=== PATIENT | male | born 1955 | race Caucasian/White ===

== ENCOUNTER → 2021-08-19 | Outpatient (CLI) | payer OTHER, MEDICARE, SELFPAY | END | disposition home or self-care (01) | PROVIDERS: PCP Specialist; Referring Provider Psychiatry & Neurology Neurology; Visit Provider Psychiatry & Neurology Neurology | DX: I10 Essential (primary) hypertension (principal) ==

== ENCOUNTER 2024-09-29 19:46 | Emergency (ER) | payer MEDICARE, OTHER, SELFPAY ==
[2024-09-29] VITALS (10 sets, daily range): BP systolic 75–140; BP diastolic 7–97; PULSE 82–117; RESP 15–127; TEMP 36.7–36.8; O2SAT 96–99; BMI 30.9
--- NOTE | 2024-09-29 20:16 | XR_ITS ---
Examination: CT abdomen and pelvis without contrast. Coronal 3-D reconstructions. Sagittal 2-D reconstructions. Date and time of exam:September 29, 20242026 hrs. Comparison September 01, 2021 Indications: Onset right-sided flank pain radiating to the back beginning last night CTDI: vol (mGy): 11.4 DLP: (mGycm): 800 Technique: Axial images of the abdomen have been obtained, 3 mm slice thickness Intravenous contrast material has not been administered. Low dose protocols were performed. One or more of the following dose reduction techniques were used; automated exposure control, adjustment of the mA and/or KV according to patient size, use of iterative reconstruction technique. Findings: No focal liver or splenic lesions No gallstones No pancreatic or adrenal mass Prominent right perinephric stranding Infrarenal abdominal aortic aneurysm transverse dimension 6.3 cm with rupture of the right lateral wall of this aneurysm, axial images 125 through 146 with free blood in the abdomen and retroperitoneal adjacent to the psoas No bowel obstruction Urinary bladder intact Impression: Ruptured infrarenal abdominal aortic aneurysm with extensive free blood in the abdomen
--- NOTE | 2024-09-29 20:17 | EKG_ITS ---
[facility] Test Date: 2024-09-29 Pat Name: ODALSY SOUSA Department: Room: - Gender: Male Wholesaler: : 1955 Requested By: Pranav Carrasco Order Number: [id number] Reading MD: Pranav Carrasco Measurements Intervals [place] Rate: 124 P: 57 [place]: 119 QRS: 61 QRSD: 81 T: 48 QT: 306 QTc: 440 Interpretive Statements SINUS TACHYCARDIA WITH SHORT [place] INTERVAL MINIMAL ST DEPRESSION [0.025+ mV ST DEPRESSION] ABNORMAL RHYTHM ECG Compared to ECG 12/31/2020 09:25:35 Short [place] interval now present ST (T wave) deviation now present Sinus rhythm no longer present /store/S0/[id number]/ecg/[id number].pdf
--- NOTE | 2024-09-29 20:17 | PD.EDADULT ---
ED General RME/HPI General Chief complaint: Abdominal Pain Stated complaint: R FLANK PAIN Time Seen by Provider: 09/29/24 20:13 Arrival date/time: 09/29/24 19:46 CC: Right flank pain right low back pain HPI insidious onset last night, progressive increase in severity, denies nausea vomiting painful urination bloody urination, shortness of breath difficulty breathing left-sided flank pain. EMS reports stable vital signs and route pain ranked at an 8 on a 10 scale. No OTC medicines taken. Patient denies any prescribed medications no allergies. Patient is a poor historian but is awake and alert. Related Data Home Medications ?Medication ?Instructions ?Recorded ?Confirmed No Known Home Medications 12/31/20 12/31/20 Allergies Allergy/AdvReac Type Severity Reaction Status Date / Time No Known Allergies Allergy Verified 01/03/21 11:22 Review of Systems Review of Systems Narrative Review of Systems: GEN: No fever, no chills, no weight loss EYES: No discharge, no visual changes, no pain HEENT: No ear pain, no congestion, no sore throat PULM: No shortness of breath, no cough, no congestion CV: No chest pain, no dyspnea on exertion, no palpitations GI: No nausea, no vomiting, no diarrhea, no pain, no constipation : No frequency, no urgency, no dysuria MUSC/SKEL: No joint pain, + back pain SKIN: No rash PSYCH: No hallucinations, no depression HEME/LYMPH: No easy bleeding or bruising tendencies NEURO: No weakness, no headache Past Medical History Past Medical History NEUROLOGIC: Negative Neurological Disorders or Seizures CARDIAC: Negative Cardiac Disorders, Congestive Heart Failure, Edema or Cellulitis (LEFT WRIST DOG SCRATCHES) RESPIRATORY: Negative Chronic Obstructive Pulmonary Disease (COPD), Tuberculosis, Pulmonary Embolism or Sleep Apnea GASTROINTESTINAL: Negative Gastrointestinal Disorders or Hepatitis GENITOURINARY: Negative Genitourinary Disorders or Renal Disease MUSCULOSKELETAL: Positive Musculoskeletal Disorders ENDOCRINE: Negative Endocrine Disorders, Diabetes Mellitus Type 1 or Diabetes Mellitus Type 2 HEMATOLOGIC: Negative Blood Disorders OTHER HISTORY: Positive Chicken Pox; Negative Hospitalization, Autoimmune Disease, Shingles, Falls, Blood Transfusions, Blood Transfusion Reaction, Anesthesia Reactions, Chemotherapy, Radiation Therapy, MRSA, Measles, Mumps or Cancer Family History FAMILY HISTORY: Positive Family Cancer (FATHER (THROAT)); Negative Family Psychiatric Problems, Family Respiratory Disorders, Family Cardiac Disorders, Family Gastrointestinal Problems, Family Surgery or Family Anesthesia Reaction Surgical History SURGICAL: Negative Pacemaker Social History SMOKING STATUS: Former smoker ED Exam Narrative Physical exam: [General: Obese mild discomfort but not in any acute distress Head normocephalic HEENT: Within acceptable limits Neck is supple nontender Chest equal chest rise nontender to palpation Respiratory: Clear to auscultation no wheezes crackles or rubs CV: Rate rhythm is regular no murmurs rubs or clicks Abdomen is distended secondary to body habitus soft nontender no masses positive bowel sounds all 4 quadrants Back: No CVA tenderness bilaterally, no spinous process tenderness from cervical spine thoracic and lumbar spine Skin: Intact no petechiae rash induration ulceration or crepitus Extremities: Moving all extremity against resistance cap refill less than 2 seconds neurosensory intact Neuro: Awake alert oriented x3 Glascow coma 15 no focal deficits] Course Course Course Narrative: CT shows a ruptured infrarenal aortic aneurysm with extensive free blood in the abdomen Patient started on 2 L of normal saline, spoke with Florentin, donor services coordinator and then with Dr. Dolan at [facility] who agrees to accept the patient encourage patient to be stabilized and flown by air. TXA does not have any advantages is not recommended for administration. Will transfuse the patient with 2 units of O- blood. During the last 20 minutes, patient was given 3 units of O- blood through rapid infuser, blood pressures improved to systolic of 120-130/60, heart rate decreased from 1 26-1 04. The patient remained awake alert oriented throughout the incident. Flight team's arrived at 2200, the patient continues to be awake alert. Quality Measures none Orders Category Date Time Status EKG (ED ONLY) *Do not use* NOW Care 09/29/24 20:17 Completed Insert IV NOW Care 09/29/24 20:54 Active Miscellaneous Nursing Order NOW Care 09/29/24 20:30 Active Transfuse,blood/blood products NOW Care 09/29/24 21:[address] abdomen pelvis wo con Stat Exams 09/29/24 20:16 Completed EKG (ED Only) Stat Exams 09/29/24 20:17 Draft B-Type Natriuretic Peptide Stat Lab 09/29/24 20:46 Completed CBC Stat Lab 09/29/24 20:46 Completed Comprehensive Metabolic Panel Stat Lab 09/29/24 20:46 Results Drug Screen,Urine Stat Lab 09/29/24 20:17 Ordered LDH (Lactate Dehydrogenase) Stat Lab 09/29/24 20:46 Results Magnesium Stat Lab 09/29/24 20:46 Results Partial Thromboplastin Time Stat Lab 09/29/24 20:46 Completed Prothrombin Time with INR Stat Lab 09/29/24 20:46 Completed Red Blood Cells Stat Lab 09/29/24 21:22 Ordered Troponin I Stat Lab 09/29/24 20:46 Results Type and Screen Stat Lab 09/29/24 21:15 Results Urinalysis Stat Lab 09/29/24 20:17 Ordered prbc [Red Blood Cells] Stat Lab 09/29/24 21:15 Results Sodium Chloride 0.9% 1000 ml [Ns] 1,000 ml Med 09/29/24 21:01 Discontinued IV 999 mls/hr Sodium Chloride 0.9% 1000 ml [Ns] 1,000 ml Med 09/29/24 21:04 Discontinued IV 999 mls/hr Vital Signs Vital signs: Vital Signs Temperature 98.2 F 09/29/24 19:50 Pulse Rate 82 09/29/24 19:50 Respiratory Rate 20 09/29/24 19:50 Blood Pressure 138/82 H 09/29/24 19:50 Pulse Oximetry (%) 99 09/29/24 19:50 Oxygen Delivery Method Room Air 09/29/24 19:50 [facility] Patient data External records reviewed:: [facility] previous records and EMS form Clinical information provided by:: patient and EMS Social determinants that could affect healthcare access:: none Patient has the following chronic illnesses:: None How is presenting disease/condition affected by chronic disease/condition?: uneffected by Evaluation data The following diagnostics were reviewed and interpreted by me:: lab results and radiology exam(s) Lab and/or radiology exams considered but not ordered:: EKG performed at 2036 shows a ventricular rate of 124 SD interval 119 QRS of 81 QTc of 380 this is sinus tachycardia. When compared to an old EKG of 2019 morphology and rate have changed. CBC shows a leukocytosis of 29,100 and H&H of 11, which is down 4 g from the last blood draw, no thrombocytopenia Coags show an INR of 1.1 CMP shows a sodium 134 potassium 3.9 chloride of 103 CO2 of 22.4 BUN of 21 creatinine 1.5 with a blood glucose of 227. Troponin at 0.027 No urine available at the time of transfer Interpretation Summary: Infrarenal aortic aneurysm 6.3 cm with rupture Medications Medications considered but not ordered:: None Medication administrations:: Medication Administration History Discontinued Medications Sodium Chloride (Ns) 1,000 mls @ 999 mls/hr IV .Q1H1M ONE Stop: 09/29/24 22:01 Last Infusion: 09/29/24 22:14 Dose: Infused Documented By: Infusion: 09/29/24 21:20 Dose: 999 mls/hr Documented By: Admin: 09/29/24 21:03 Dose: 999 mls/hr Documented By: FAHEEM Sodium Chloride (Ns) 1,000 mls @ 999 mls/hr IV .Q1H1M ONE Stop: 09/29/24 22:04 Last Infusion: 09/29/24 21:20 Dose: 0 mls/hr Documented By: Admin: 09/29/24 21:06 Dose: 999 mls/hr Documented By: FAHEEM None Consultations Consultation(s) initiated? (list below): Yes Consultation #1 (Physician, Specialty, Details): Dr Magdaleno enrique Time: 21:30 Diagnosis Differential Diagnosis ED Complaint MDM: Intrarenal aortic aneurysm with rupture, urolithiasis hydroureter ileus Most likely diagnosis given after review of the tests above:: Infrarenal aortic aneurysm with rupture Admission Indicated Admission indicated?: indicated Explain why admission is indicated or not indicated:: Transfer Admission Request Was there a request for admission?: No Disposition Plan Disposition Plan: Transfer Medical Decision Making Differential Diagnosis Differential Diagnosis: Intrarenal aortic aneurysm with rupture, urolithiasis hydroureter ileus Lab Data 09/29/24 20:46 09/29/24 20:46 Labs: Lab Results 09/29/24 09/29/24 Range/Units 20:46 21:15 WBC 29.1 H (3.8-10.6) Thou/mm3 RBC 4.12 L (4.50-5.90) Miln/mm3 Hgb 11.7 L (13.5-16.0) g/dL Hct 34.6 L (41.0-53.0) % MCV 84 (80-100) fL MCH 28.4 (25.0-35.0) pg MCHC 33.8 (31.0-37.0) g/dl RDW Std Deviation 42.1 (35.1-43.9) fL Plt Count 357 (140-440) Thou/mm3 Neut % (Auto) 86 H (37-80) % Lymph % (Auto) 5 L (10-50) % Wheeler % (Auto) 8 (0-12) % Eos % (Auto) 0 (0-10) % Baso % (Auto) 0 (0-2.5) % Neut # (Auto) 24.9 H (1.8-7.7) Thou/mm3 Lymph # (Auto) 1.6 (1.0-4.8) Thou/mm3 Wheeler # (Auto) 2.2 H (0.0-0.8) Thou/mm3 Eos # (Auto) 0.1 (0.0-0.5) Thou/mm3 Baso # (Auto) 0.1 (0.0-0.2) Thou/mm3 Immature Gran # (Auto) 0.31 H (0.00-0.00) Thou/mm3 Absolute Nucleated RBC 0.00 (0.00-0.00) Thou/mm3 Immature Gran % 1 H (0-0) % Nucleated RBC % 0 (0) /100 WBC PT 11.9 (9.0-12.2) Seconds INR 1.1 (0.9-1.3) APTT 30.0 (22.0-36.0) Seconds Sodium 134 L (136-145) mMol/L Potassium 3.9 (3.4-5.1) mMol/L Chloride 103 (98-107) mMol/L Carbon Dioxide 22.4 (20.0-31.0) mMol/L Anion Gap 9 (7-16) BUN 21 (9-23) mg/dL Creatinine 1.5 H (0.6-1.3) mg/dL Estim Creat Clear Calc 57.8 L (>60) mL/min eGFR 50 L (60 - ) See Note BUN/Creatinine Ratio 14 (12-20) Ratio Glucose 227 H (74-106) mg/dL Calculated Osmolality 278 (275-295) Calcium 9.0 (8.3-10.6) mg/dL Corrected Calcium 9.0 (8.5-10.1) mg/dL Magnesium 2.2 (1.6-2.6) mg/dL Total Bilirubin 0.9 (0.3-1.2) mg/dL AST 25 (0-34) U/L ALT 28 (10-49) U/L Alkaline Phosphatase 93 (46-116) U/L Troponin I 0.027 (0.0-0.045) ng/mL B-Natriuretic Peptide < 20 (0-100) pg/mL Total Protein 6.6 (5.7-8.2) gm/dL Albumin 4.0 (3.4-4.8) gm/dL Globulin 2.6 (2.3-3.5) gm/dL Albumin/Globulin Ratio 1.5 (1.2-2.2) Blood Type B Positive Antibody Screen NEGATIVE Crossmatch See Detail Blood Bank Wristband ID Yes Critical Care Time Critical Care Time Critical Care Time: Yes Total Critical Care Time (min.): 38 Attestation: Excluding procedures Discharge Plan [facility] Transferred to: [facility] Service Needed for Transfer: Vascular Surgery Patient condition on transfer: Stable Prescriptions/Referrals Prescriptions/Med Rec: No Action No Known Home Medications Referrals: No Primary/Family,Physician [Primary Care Provider] - In 1 week Problem List Clinical Impression: Aneurysm, aortic, ruptured Patient/Caregiver Discharge Instructions Print Language: Cymro Stand Alone Forms: Judith Award Info., Patient Portal Info Letter PA/PAPO Supervising Physician JOHN/PAPO Supervising Physician: Pranav Tyler ENP
[2024-09-29] MEDS: SODIUM CHLORIDE 0.9% 1000 ML 1,000 ML 999 ML IV ×2 (21:03→21:06)
[2024-09-29 21:06] LABS: Basophils # (Auto) 0.1 Thou/mm3 (0.0-0.2); Basophils % (Auto) 0 % (0-2.5); Eosinophils # (Auto) 0.1 Thou/mm3 (0.0-0.5); Eosinophils % (Auto) 0 % (0-10); Hematocrit 34.6 % (41.0-53.0); Hemoglobin 11.7 g/dL (13.5-16.0); Immature Granulocytes % (Auto) 1 % (0-0); Immature Granulocytes Auto 0.31 Thou/mm3 (0.00-0.00); Lymphocytes # (Auto) 1.6 Thou/mm3 (1.0-4.8); Lymphocytes % (Auto) 5 % (10-50); Mean Corpuscular HGB Conc 33.8 g/dl (31.0-37.0); Mean Corpuscular Hemoglobin 28.4 pg (25.0-35.0); Mean Corpuscular Volume 84 fL (80-100); Monocytes # (Auto) 2.2 Thou/mm3 (0.0-0.8); Monocytes % (Auto) 8 % (0-12); Neutrophils # (Auto) 24.9 Thou/mm3 (1.8-7.7); Neutrophils % (Auto) 86 % (37-80); Nucleated Red Blood Cell % 0 /100 WBC (0); Platelet Count 357 Thou/mm3 (140-440); RDW Standard Deviation 42.1 fL (35.1-43.9); Red Blood Count 4.12 Miln/mm3 (4.50-5.90)
[2024-09-29 21:10] LABS: White Blood Count 29.1 Thou/mm3 (3.8-10.6)
[2024-09-29 21:22] LABS: INR 1.1 (0.9-1.3); Prothrombin Time 11.9 Seconds (9.0-12.2)
[2024-09-29 21:23] LABS: B-Type Natriuretic Peptide < 20 pg/mL (0-100)
--- NOTE | 2024-09-29 21:23 | PC.NURSE ---
PT WAS ACCEPTED TO [facility] BY DR. MICHAELS. THIS IS A ER:ER TRANSFER AND NUMBER FOR REPORT IS [phone]. FABRICIO WAS THE REP I SPOKE TO FOR ACCEPTING INFORMATION.
--- NOTE | 2024-09-29 21:24 | PC.NURSE ---
I CONTACTED [facility] TO SEE ID THEY ARE ABLE TO TRANSPORT THIS PT FOR US AND WE ARE PENDING A CALL BACK AT THIS TIME. SARAI WAS THE REP I SPOKE WITH.
--- NOTE | 2024-09-29 21:27 | PC.NURSE ---
PT WAS ACCEPTED FOR TRANSPORT BY [facility] WITH A BEDSIDE ETA OF 20MIN.
--- NOTE | 2024-09-29 21:30 | PC.NURSE ---
Rapid blood infusing started
[2024-09-29 21:42] LABS: Alanine Aminotransferase 28 U/L (10-49); Albumin/Globulin Ratio 1.5 (1.2-2.2); Alkaline Phosphatase 93 U/L (46-116); Anion Gap 9 (7-16); Aspartate Amino Transferase 25 U/L (0-34); BUN/Creatinine Ratio 14 Ratio (12-20); Bilirubin,Total 0.9 mg/dL (0.3-1.2); Blood Urea Nitrogen 21 mg/dL (9-23); Carbon Dioxide 22.4 mMol/L (20.0-31.0); Chloride 103 mMol/L (98-107); Creatinine (Component) 1.5 mg/dL (0.6-1.3); Estimated Creatinine Clearance 57.8 mL/min (>60); Globulin 2.6 gm/dL (2.3-3.5); Glucose 227 mg/dL (74-106); Magnesium 2.2 mg/dL (1.6-2.6); Osmolality,Calculated 278 (275-295); Potassium 3.9 mMol/L (3.4-5.1); Sodium 134 mMol/L (136-145); Total Protein 6.6 gm/dL (5.7-8.2); Troponin I 0.027 ng/mL (0.0-0.045); eGFR 50 See Note
--- NOTE | 2024-09-29 22:02 | PC.NURSE ---
fight team here
--- NOTE | 2024-09-29 22:04 | PC.NURSE ---
GAVE REPORT TO LUZ ELENA PATELOVEN DRIER TENDER NURSE
--- NOTE | 2024-09-29 22:12 | PC.NURSE ---
Called [facility] and gave report to Tammie PATEL
[2024-09-29 23:00] LABS: LDH (Lactate Dehydrogenase) 157 U/L (120-246)
== END 2024-09-29 22:18 | disposition short-term general hospital (02) ==
PROVIDERS: Registered Nurse General Practice; Emergency Provider Emergency Medicine
DX: I71.33 Infrarenal abdominal aortic aneurysm, ruptured (principal); R00.0 Tachycardia, unspecified; Z75.1 Person awaiting admission to adequate facility elsewhere
CPT/HCPCS: 36415; 36430; 74176; 80048; 80053; 80307; 81001; 83605; 83615; 83735; 83880; 84484; 85025; 85610; 85730; 86850; 86900; 86901; 86920; 93005; 96360; 99291; J7030; P9016

== ENCOUNTER 2024-10-06 12:55 | Emergency (ER) | payer MEDICARE, OTHER, SELFPAY ==
[2024-10-06] VITALS (11 sets, daily range): BP systolic 127–179; BP diastolic 71–99; PULSE 90–111; RESP 16–20; TEMP 36.7–37.7; O2SAT 94–97; BMI 31.1
[2024-10-06 13:41] LABS: Basophils % (Auto) 0 % (0-2.5); Eosinophils # (Auto) 0.4 Thou/mm3 (0.0-0.5); Eosinophils % (Auto) 3 % (0-10); Hematocrit 30.1 % (41.0-53.0); Immature Granulocytes % (Auto) 4 % (0-0); Immature Granulocytes Auto 0.41 Thou/mm3 (0.00-0.00); Lymphocytes # (Auto) 0.9 Thou/mm3 (1.0-4.8); Lymphocytes % (Auto) 8 % (10-50); Mean Corpuscular HGB Conc 33.2 g/dl (31.0-37.0); Mean Corpuscular Hemoglobin 28.7 pg (25.0-35.0); Mean Corpuscular Volume 87 fL (80-100); Monocytes % (Auto) 9 % (0-12); Neutrophils # (Auto) 8.3 Thou/mm3 (1.8-7.7); Neutrophils % (Auto) 76 % (37-80); Nucleated Red Blood Cell % 0 /100 WBC (0); Platelet Count 255 Thou/mm3 (140-440); RDW Standard Deviation 44.5 fL (35.1-43.9); Red Blood Count 3.48 Miln/mm3 (4.50-5.90)
[2024-10-06 13:50] LABS: INR 1.1 (0.9-1.3); Partial Thromboplastin Time 29.1 Seconds (22.0-36.0); Prothrombin Time 11.8 Seconds (9.0-12.2)
[2024-10-06 13:54] LABS: Alanine Aminotransferase 69 U/L (10-49); Albumin, Serum 3.6 gm/dL (3.4-4.8); Albumin/Globulin Ratio 1.3 (1.2-2.2); Alkaline Phosphatase 154 U/L (46-116); Anion Gap 7 (7-16); Aspartate Amino Transferase 49 U/L (0-34); BUN/Creatinine Ratio 22 Ratio (12-20); Bilirubin,Total 1.6 mg/dL (0.3-1.2); Blood Urea Nitrogen 22 mg/dL (9-23); Calcium 8.6 mg/dL (8.3-10.6); Calcium (Corrected) 8.9 mg/dL (8.5-10.1); Carbon Dioxide 27.4 mMol/L (20.0-31.0); Chloride 102 mMol/L (98-107); Estimated Creatinine Clearance 87.1 mL/min (>60); Globulin 2.8 gm/dL (2.3-3.5); Glucose 110 mg/dL (74-106); Osmolality,Calculated 276 (275-295); Potassium 3.8 mMol/L (3.4-5.1); Sodium 136 mMol/L (136-145); Total Protein 6.4 gm/dL (5.7-8.2); Troponin I < 0.020 ng/mL (0.0-0.045); eGFR > 60 See Note
--- NOTE | 2024-10-06 13:56 | EDNOTE_ITS ---
ED Weakness RME/HPI General Chief complaint: Weakness Stated complaint: WEAKNESS Time Seen by Provider: 10/06/24 13:01 Arrival date/time: 10/06/24 12:55 Limitations: no limitations RME / HPI RME / HPI Narrative: DR. PITTMAN MAIN ED EVALUATION: 69-year-old male who was discharged 3 days ago from [facility] after repair of a ruptured AAA, who has had persistent weakness since the procedure, unable to get out of bed, and has persisted. He reports being discharged on Sunday, but also was told that he ?signed out against advice on Sunday . He was not offered rehabilitation. He comes in now as is unable to care for him at home for further assessment. Patient has generalized weakness without any pain. Related Data Home Medications ?Medication ?Instructions ?Recorded ?Confirmed No Known Home Medications 12/31/20 12/31/20 Allergies Allergy/AdvReac Type Severity Reaction Status Date / Time No Known Allergies Allergy Verified 01/03/21 11:22 Review of Systems Review of Systems Systems Reviewed: All systems reviewed, normal except as documented Narrative Review of Systems: GEN: No fever, no chills, no weight loss EYES: No discharge, no visual changes, no pain HEENT: No ear pain, no congestion, no sore throat PULM: No shortness of breath, no cough, no congestion CV: No chest pain, no dyspnea on exertion, no palpitations GI: No nausea, no vomiting, no diarrhea, no pain, no constipation : No frequency, no urgency and no dysuria MUSC/SKEL: No joint pain, no back pain SKIN: No rash PSYCH: No hallucinations, no depression HEME/LYMPH: No easy bleeding or bruising tendencies NEURO: + generalized weakness, no headache Past Medical History Past Medical History NEUROLOGIC: Positive Neurological Disorders and Multiple Sclerosis CARDIAC: Positive Cardiac Disorders (TRIPLE A) MUSCULOSKELETAL: Positive Musculoskeletal Disorders and Arthritis PSYCHO/SOCIAL: Positive Depression OTHER HISTORY: Positive Chicken Pox Family History FAMILY HISTORY: Positive Family Cancer Surgical History OTHER SURGICAL HX: TRIPLE A SURGERY, 09/30/24 Social History SMOKING STATUS: Former smoker SUBSTANCE USE: does not use ALCOHOL: Never ED Exam General Limitations: Present no limitations General appearance: Present alert and in no apparent distress Head Head exam: Present atraumatic, normocephalic and normal inspection Eye Eye exam: Present normal appearance, PERRL and EOMI ENT ENT exam: Present normal exam, normal oropharynx and mucous membranes moist Neck Neck exam: Present normal inspection, full ROM and trachea midline Chest Chest inspection: Present normal inspection and symmetric chest wall rise Respiratory Respiratory exam: Present normal lung sounds bilaterally Cardiovascular Cardiovascular exam: Present regular rate, normal rhythm and normal heart sounds Abdominal Exam Abdominal exam: Present soft and normal bowel sounds Extremities Exam Extremities exam: Present normal inspection and full ROM Back Exam Back exam: Present normal inspection and full ROM Neurological Exam Neurological exam: Present alert, oriented X3 and CN II-XII intact Psychiatric Psychiatric exam: Present normal affect and normal mood Skin Skin exam: Present warm, dry, intact and normal color Course Quality Measures none Orders Category Date Time Status CT angio chest abdomen pelvis Stat Exams 10/06/24 14:[address] head/brain wo con Stat Exams 10/06/24 15:36 Ordered CBC Stat Lab 10/06/24 13:30 Completed CMP [Comprehensive Metabolic Panel] Stat Lab 10/06/24 13:30 Completed Hemoglobin and Hematocrit Stat Lab 10/06/24 17:20 Received Partial Thromboplastin Time Stat Lab 10/06/24 13:30 Completed Prothrombin Time with INR Stat Lab 10/06/24 13:30 Completed Troponin I Stat Lab 10/06/24 13:30 Completed Type and Screen Stat Lab 10/06/24 14:39 Completed Urinalysis Stat Lab 10/06/24 15:10 Completed Vital Signs Vital signs: Vital Signs Temperature 98.7 F 10/06/24 13:21 Pulse Rate 102 H 10/06/24 13:21 Respiratory Rate 20 10/06/24 13:21 Blood Pressure 179/80 H 10/06/24 13:21 Pulse Oximetry (%) 97 10/06/24 13:21 Oxygen Delivery Method Room Air 10/06/24 13:21 Weakness MDM Narrative MDM Narrative:: Mr. Dixon presents emergency department approximately 1 week after a massive life-saving repair of a ruptured AAA 1 week ago at [facility]. It sounds like he may have been discharged prematurely for reasons that are unclear where he had generalized weakness, to the point of not being able to maintain his daily activities. Sujey Jacobo, am scribing for and in the presence of Dr. Pittman. Patient data External records reviewed:: [facility] previous records (Reviewed Orthopedics note by Dr. Iqbal, dated 01/03/21.) and EMS form Clinical information provided by:: patient and EMS Social determinants that could affect healthcare access:: none Patient has the following chronic illnesses:: Recent ruptured AAA repair at [facility]. How is presenting disease/condition affected by chronic disease/condition?: caused by Evaluation data The following diagnostics were reviewed and interpreted by me:: lab results Lab and/or radiology exams considered but not ordered:: none Interpretation Summary: As per narrative Medications / Prescriptions Medications or Prescriptions considered but not ordered:: none Medication administrations:: see above if any Consultations Consultation(s) initiated? (list below): No Diagnosis Weakness Differential Diagnosis: acute myocardial infarction, anemia, hypoglycemia, hypothyroidism, rhabdomyolysis, sepsis and dehydration Most likely diagnosis given after review of the tests above:: Workup in progress Admission Indicated Admission indicated?: not indicated (Workup in progress) Admission Request Was there a request for admission?: No Admission Attestation Admission request attestation: Workup in progress Disposition Plan Disposition Plan: other (specify) (Workup in progress) Discharge Plan Prescriptions/Referrals Prescriptions/Med Rec: No Action No Known Home Medications Referrals: David Combs MD [Primary Care Provider] - In 1 week Problem List Clinical Impression: Weakness, Anemia Patient/Caregiver Discharge Instructions Print Language: Angolan
--- NOTE | 2024-10-06 14:57 | XR_ITS ---
Examination: CTA chest, with intravenous contrast. CTA abdomen, with intravenous contrast. CTA pelvis, with intravenous contrast. 2-D sagittal and coronal reconstructions. 3-D reconstructions. Date and time of exam: October 06, 2024 at 1751 hours INDICATIONS: Onset weakness chest pain shortness of breath today, recent abdominal aortic aneurysm repair CTDI vol (mgy) 12.5 DLP (MGycm) 972 Technique: Multiple CTA images, 2.0 mm slice thickness, obtained chest, abdomen, pelvis, with the high-resolution 64 slice scanner. 100 cc Isovue-370 is administered intravenously. Sagittal and coronal 2-D reconstructions are obtained. 3-D reconstructions, angiographic images are obtained. 3-D postprocessing, including vascular maximum intensity projections. Low dose protocols were performed. One or more of the following dose reduction techniques were used; automated exposure control, adjustment of the mA and/or KV according to patient size, use of iterative reconstruction technique. Findings: AP dimension ascending thoracic aorta 31 mm No pulmonary artery emboli No paratracheal tracheobronchial or bronchopulmonary adenopathy No pneumonia, pulmonary edema or pleural disease No focal liver lesions There is a ruptured infrarenal abdominal aortic aneurysm, axial image 262 demonstrates a 3 cm defect in the right lateral wall of the aorta with extensive blood in the abdomen AP dimension infrarenal abdominal aortic aneurysm 6.2 cm, mediolateral dimension at least 6.7 cm, cephalad caudad dimension 9.7 cm There is contrast opacification of the aorto iliac endoluminal stent Colonic diverticulosis Urinary bladder intact Severe osteopenia IMPRESSION: There is rupture of the right lateral wall of the infrarenal abdominal aortic aneurysm with extensive free blood in the abdomen This report was personally communicated to Dr. Hernandez
[2024-10-06 15:27] LABS: Collection Type, Urine Clean Catch; Squamous Epithelial Cell,Urine 0 /hpf (0-5)
--- NOTE | 2024-10-06 15:36 | XR_ITS ---
Examination: CT brain head without contrast. 2-D sagittal coronal reconstructions Date and time of exam:October 06, 2024 1747 hours COMPARISON: 08/01/2021 INDICATIONS: Altered mental status generalized body weakness today CTDI: vol (mGy):44.9 DLP: (mGycm):1138 Technique: Multiple CT axial sections of the brain have been obtained, 5 mm slice thickness. Contrast has not been administered. 2-D sagittal, coronal reconstructions have been obtained Low dose protocols were performed. One or more of the following dose reduction techniques were used; automated exposure control, adjustment of the mA and/or KV according to patient size, use of iterative reconstruction technique. Findings: No significant ventricular enlargement. Apparent artifacts in the upper sections secondary to patient motion Intra-axial or extra-axial hemorrhage density is not seen. No mass effect or midline shift Basal cisterns are not remarkable. Fourth ventricle is midline. Cranial vault intact. Impression: The study is limited secondary to significant patient motion No gross hemorrhage or mass effect
[2024-10-06 15:53] LABS: Bilirubin,Urine Negative (Negative); Blood,Urine Negative (Negative); Clarity,Urine Clear (Clear/Hazy); Color,Urine Yellow (Lt Yel-Yel); Glucose, Urine Negative (Negative); Ketones,Urine Negative (Negative); Leukocyte Esterase,Urine Negative (Negative); Nitrite,Urine Negative (Negative); PH,Urine 6.5 (5.0-7.0); Protein,Urine Trace (Neg - Trace); RBC,Urine 2 /hpf (0-3); Specific Gravity,Urine 1.028 (1.001-1.035); WBC,Urine 4 /hpf (0-5)
[2024-10-06 17:41] LABS: Hematocrit 29.5 % (41.0-53.0)
--- NOTE | 2024-10-06 17:55 | PC.NURSE ---
PT TAKEN DOWN TO CT, VIA POPPY
--- NOTE | 2024-10-06 19:02 | PC.CM ---
I received a call from Thelma in ED stating patient needs to be transferred to [facility] for ruptured aneurism. I called [facility] transfer center and I initiated transfer and I faxed over information. I made a CD and took paperwork to ED.
--- NOTE | 2024-10-06 19:24 | PC.CC ---
DONAVON CC engaged by bedside RN, as pts step daughter is requesting to speak with SS, due to concerns that pt is unable to ambulate. Pt was a [facility] transfer to [facility] on 09/29/24 for Aortic Aneurism. ELECTRICAL CAD DESIGNER CC met with pts step daughter Marija Davidson [phone] at bedside. At time of encounter pt is in CT. ELECTRICAL CAD DESIGNER CC introduced self and role in pt care. Per pts daughter pt was D/c from [facility] on 10/03/24 home. Per daughter to her understanding pt was not offered SNF, was not offered Home Health. Per pts daughter pt has been very weak since returning home, has been unable to ambulate or care for himself. Per pts daughter pt lives at home with her elderly mother who is unable to care for pt due to her own medical issues. ELECTRICAL CAD DESIGNER CC discussed SNF options, and pt will meet criteria for placement due to recent 3 midnight stay as inpatient. DONAVON CC spoke with ED attending Dr. Pittman who is in agreement to order PT eval. Pt to be kept in ED overnight for possible placement in AM. DONAVON CC met with pt at bedside, introducing self. Per pt he completed a PT eval a [facility] with PT concerned for pts mobility. Per pt to his knowledge he was not offered SNF or home health services. At this time ED attending Dr. Hernandez is pending follow from [facility] due to concerning CT report. ELECTRICAL CAD DESIGNER CC to remain available as needed for pt care and staff support. If pt remains in ED overnight SS to follow up in AM.
--- NOTE | 2024-10-06 21:25 | PC.NURSE ---
one unit of blood has infused as of 2039 pt is in no distress. No adverse reaction noted. Pt denies pain and is feeling better.
[2024-10-07] VITALS (11 sets, daily range): BP systolic 98–156; BP diastolic 59–81; PULSE 80–100; RESP 16–20; TEMP 36.9–37.4; O2SAT 95–99; BMI 11.0
[2024-10-07 00:42] LABS: Hematocrit 30.9 % (41.0-53.0); Hemoglobin 10.3 g/dL (13.5-16.0)
[2024-10-07] MEDS: LORazepam 2 MG/ML VIAL IVP (01:23)
--- NOTE | 2024-10-07 01:24 | PC.NURSE ---
Pt having trouble sleeping. Spoke with MD. meds ordered and given.
--- NOTE | 2024-10-07 06:16 | PD.EDADDENDU ---
Emergency Room Addendum Addendum Narrative: I took over the care from Dr. Pittman at 6 PM on 10/06/2024. During my watch, the patient remained stable. Our radiologist and Dr. Dolan ([facility]) discussed today's CT scans (made decision no acute event currently). At 6 AM on 10/07/2024, the care of the patient was transferred to Dr Pittman. Wilfrido Hernandez MD
--- NOTE | 2024-10-07 07:19 | EDNOTE_ITS ---
Emergency Room Addendum <Darya Mckinney - Last Filed: 10/07/24 12:56> Addendum Narrative: 0600: Care assumed from Dr. Hernandez, the previous shift emergency physician. Past medical, surgical, social and family history reviewed. Vitals and home medications reviewed. I will assume the care of the patient at this time, pending PT evaluation and final disposition. Please refer to the emergency department record for history and examination from initial visit.? Nursing notes reviewed by me. Vital signs reviewed by me. [place] medical records reviewed by me. 0955: PT has evaluated the patient and report he is max assist getting out of bed. Recommended SNF placement. Patient has been accepted at [facility]. <Noe Pittman MD - Last Filed: 10/07/24 15:47> Addendum Narrative: 0600: Care assumed from Dr. Hernandez, the previous shift emergency physician. Past medical, surgical, social and family history reviewed. Vitals and home medications reviewed. I will assume the care of the patient at this time, pending PT evaluation and final disposition. Please refer to the emergency department record for history and examination from initial visit.? Nursing notes reviewed by me. Vital signs reviewed by me. [place] medical records reviewed by me. 0955: PT has evaluated the patient and report he is max assist getting out of bed. Recommended SNF placement. [facility]. Patient transported to rehabilitation facilty in stable condition.
--- NOTE | 2024-10-07 07:46 | PC.CM ---
0745 spoke to ED charge nurse regarding transfer update and found transfer has been cancelled.
--- NOTE | 2024-10-07 10:06 | PC.PT ---
PT eval completed. Pls see PT eval notes. Patient will need SNF placement for short term rehab services.
--- NOTE | 2024-10-07 11:47 | PC.NURSE ---
1100: Pt given sandwich, apple juice, and chocolate pudding. Pt eating and drinking and no distress.
[2024-10-07] MEDS: ACETAMINOPHEN 325 MG TABLET 650 MG PO (15:20)
--- NOTE | 2024-10-07 16:24 | PC.CC ---
Pt Michael Cartagena is a 69 yr old male, holding in ED for PT eval and possible SNF placement. Pt to ED for weakness. Pt was a higher level of care transfer to [facility] on 09/29/2024, pt d/c home on 10/03/24. Initially transfer request for pt to return to [facility] initiated on 10/06/24. Transfer request canceled with pt being medically cleared for placement. FLOATING DERRICK OPERATOR CC met with pt at bedside. Pt identifies [facility] as being primary choice of placement. Per pt he has been to [facility] in past and would like to return. Pt denies any hx of mental health issues. Pt denies being prescribed psychotropic drugs. Pt has never received services from a [facility]. Pt report no hx of ID, DD. PASRR completed. PT eval completed and inquiry uploaded to [facility]. Request for short term stay for rehab with pt returning home. Inquiry sent to local facilities. [facility] has accepted with pts recent [address] [facility]. Placement booked. 1407-Call to [facility] for gurney transport. Will provide transport ETA. 1512-Call to [facility], transport ETA scheduled for 1615. FLOATING DERRICK OPERATOR CC provided update to Kitty with [facility]. Pt has been updated on transport ETA. Pt packet completed and attached to pts hard chart.
== END 2024-10-07 16:15 | disposition skilled nursing facility (03) ==
PROVIDERS: Emergency Medicine; Emergency Provider Emergency Medicine; PCP Specialist
DX: R53.1 Weakness (principal); R41.82 Altered mental status, unspecified; R07.9 Chest pain, unspecified; R06.02 Shortness of breath; D64.9 Anemia, unspecified
CPT/HCPCS: 36415; 36430; 70450; 71275; 74174; 80053; 81001; 84484; 85014; 85018; 85025; 85610; 85730; 86850; 86900; 86901; 86920; 96374; 99285; A4649; J2060; P9016; Q9967; A9270

== ENCOUNTER → 2025-02-05 | Outpatient (CLI) | payer MEDICARE, OTHER, SELFPAY ==
[2025-02-05 11:47] LABS: Prostate Specific Antigen 1.63 ng/mL (0-4.00)
[2025-02-05 11:59] LABS: Alanine Aminotransferase 12 U/L (10-49); Albumin, Serum 3.7 gm/dL (3.4-4.8); Albumin/Globulin Ratio 1.5 (1.2-2.2); Alkaline Phosphatase 110 U/L (46-116); Anion Gap 11 (7-16); Aspartate Amino Transferase 12 U/L (0-34); BUN/Creatinine Ratio 12 Ratio (12-20); Bilirubin,Total 0.4 mg/dL (0.3-1.2); Blood Urea Nitrogen 14 mg/dL (9-23); Calcium 8.6 mg/dL (8.3-10.6); Calcium (Corrected) 8.8 mg/dL (8.5-10.1); Carbon Dioxide 24.7 mMol/L (20.0-31.0); Cardiac Risk Estimate 4.9 RATIO (4.0-6.7); Chloride 106 mMol/L (98-107); Cholesterol 177 mg/dL (132-200); Creatinine (Component) 1.2 mg/dL (0.6-1.3); Globulin 2.5 gm/dL (2.3-3.5); Glucose 175 mg/dL (74-106); HDL Cholesterol 36 mg/dL (40-60); LDL Cholesterol,Calculated 110 mg/dL (0-130); Osmolality,Calculated 287 (275-295); Sodium 142 mMol/L (136-145); Total Protein 6.2 gm/dL (5.7-8.2); Triglycerides 155 mg/dL (30-150); eGFR > 60 See Note
== END | disposition home or self-care (01) ==
PROVIDERS: PCP Specialist; Referring Provider Specialist; Visit Provider Specialist
DX: E78.2 Mixed hyperlipidemia (principal); N40.1 Benign prostatic hyperplasia with lower urinary tract symptoms; G35 Multiple sclerosis
CPT/HCPCS: 36415; 80053; 80061; 84153; 85025

== ENCOUNTER → 2025-02-10 | Outpatient (CLI) | payer MEDICARE, OTHER, SELFPAY ==
[2025-02-10 14:43] LABS: Basophils % (Auto) 1 % (0-2.5); Eosinophils # (Auto) 0.3 Thou/mm3 (0.0-0.5); Eosinophils % (Auto) 4 % (0-10); Hematocrit 45.6 % (41.0-53.0); Hemoglobin 14.7 g/dL (13.5-16.0); Immature Granulocytes % (Auto) 0 % (0-0); Immature Granulocytes Auto 0.03 Thou/mm3 (0.00-0.00); Lymphocytes # (Auto) 1.4 Thou/mm3 (1.0-4.8); Lymphocytes % (Auto) 19 % (10-50); Mean Corpuscular HGB Conc 32.2 g/dl (31.0-37.0); Mean Corpuscular Hemoglobin 26.8 pg (25.0-35.0); Mean Corpuscular Volume 83 fL (80-100); Monocytes # (Auto) 0.6 Thou/mm3 (0.0-0.8); Monocytes % (Auto) 9 % (0-12); Neutrophils # (Auto) 4.8 Thou/mm3 (1.8-7.7); Neutrophils % (Auto) 68 % (37-80); Nucleated Red Blood Cell % 0 /100 WBC (0); Platelet Count 185 Thou/mm3 (140-440); Red Blood Count 5.48 Miln/mm3 (4.50-5.90); White Blood Count 7.1 Thou/mm3 (3.8-10.6)
== END | disposition home or self-care (01) ==
LOC: SLDO 12:43
PROVIDERS: PCP Specialist; Referring Provider Specialist; Visit Provider Specialist
DX: E78.2 Mixed hyperlipidemia (principal); N40.1 Benign prostatic hyperplasia with lower urinary tract symptoms; G35 Multiple sclerosis
CPT/HCPCS: 36415; 85025